=== PATIENT | female | born 1965 | race Caucasian/White ===

== ENCOUNTER 2020-12-21 20:21 | Emergency (ER) | payer MEDICAID ==
[~2020-12-21] VITALS: Ht 165.1 cm; Wt 58.0 kg
[2020-12-21 20:23] VITALS: BP 123/79
[2020-12-21] MEDS ORDERED: CARBAMIDE PEROXIDE EAR DROPS 6.5%, 15ML LEFT EAR ONE (20:30)
--- NOTE | 2020-12-21 21:23 | NUR ---
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 Pt not in lobby at this time.
--- NOTE | 2020-12-21 21:33 | NUR ---
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 Pt not in lobby at this time, 2nd attempt.
--- NOTE | 2020-12-21 21:44 | NUR ---
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 PT not in lobby, called for patient 3rd attempt.
== END 2020-12-21 21:41 | disposition left against medical advice (07) ==
LOC: ED 21:30
DX: H61.22 Impacted cerumen, left ear (principal)
CPT/HCPCS: 99282

== ENCOUNTER 2021-02-06 16:58 | Emergency (ER) | payer MEDICAID ==
[~2021-02-06] VITALS: Ht 165.1 cm; Wt 59.0 kg
--- NOTE | 2021-02-06 20:41 | NUR ---
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
[2021-02-06 20:59] VITALS: BP 111/93
== END 2021-02-06 21:20 | disposition home or self-care (01) ==
LOC: ED 21:10
DX: H60.312 Diffuse otitis externa, left ear (principal); H60.12 Cellulitis of left external ear
CPT/HCPCS: 99283